=== PATIENT | female | born 1990 | race African-American/Black ===

== ENCOUNTER → 2021-03-17 00:45 | Outpatient (CLI) | payer OTHER, SELFPAY ==
[2021-03-17 12:51] LABS: SARS-CoV-2 RNA PCR Negative
== END ==
PROVIDERS: Visit Provider Surgery Plastic and Reconstructive Surgery
DX: Z01.812 Encounter for preprocedural laboratory examination (principal); Z20.822 Contact with and (suspected) exposure to COVID-19
CPT/HCPCS: C9803; U0003; U0005

== ENCOUNTER 2021-03-21 00:12 | Day surgery (SDC) | payer OTHER, SELFPAY ==
[2021-03-13 12:49] VITALS: BMI 20.1
--- NOTE | 2021-03-13 13:08 | PC.NURSE ---
Addendum entered by Kesha Baker RN 03/13/21 13:14: CORRECTION: SURGERY ON 03/21/21 ARRIVE @ 0600 SURGERY @ 0730 Original Note: Report to the Outpatient Waiting Room, entrance under the green pavilion located off [facility], at time _0600_ on date 03/13/21_. OR Time: _729__. - You will be asked a series of questions to screen for COVID 19 for your protection. - A mask is required within the hospital. - No visitors are allowed at this time. Preoperative COVID Testing Requirements: No COVID Test needed if: (proof is required; if not received patient will have Rapid Test prior to entry) - Patient has received COVID Vaccine at least 14 days prior to procedure date or - Patient has positive COVID test result within last 90 days of surgery date. COVID Test needed if above criteria is not met If not COVID vaccinated a COVID test must be conducted within 72 hours of surgery and patient is asked to isolate self from time of testing until procedure. You will go to the [facility] for your COVID testing. The [facility] site is located at the corner [address] [facility]. TEST 03/17/21 @ 0930 You will only be called if COVID results are positive and your surgeon may reschedule your elective surgery date. Patients may have clear liquids (water, carbonated beverages, clear teas, apple juice) until 3 hours prior to surgery with a maximum of 20 ounces. - No food from midnight until time of surgery - Infants may have breast milk until 4 hours before surgery, formula 6 hours prior to surgery. - Children will be allowed to drink immediately following surgery. If applicable, please bring a bottle or sippy cup to assist with drinking. Juice, water, soda, and popsicles are readily available. For infants on formula, please bring formula the day of surgery. Pacifiers are allowed. Take the following medications with a SIP of water the morning of surgery: ___NONE Medications to discontinue per physician N/A Date to take last dose N/A Please no make-up, nail upper sorbian, hairspray, perfume, deodorant, or body powder the day of surgery. No jewelry (including any body piercings) or valuables the day of surgery, leave them at home. Please take a shower or bath the night before, or the morning of, surgery with an antibacterial soap. Wear comfortable, loose fitting clothing. Children are encouraged to wear pajamas. - Jewelry must be removed prior to entering the operating room. Rings and piercings that are not removed may be cut off. - The hospital will not accept responsibility for valuables. - Please leave all valuables, including medications, at home the day of surgery. If you are going home after surgery, a licensed scoop driver must drive you home. - NO public transportation without another adult. - We recommend that an adult stay with you for 24 hours following discharge. - We also recommend that you do not drive, make important decision, drink alcoholic beverages, or take any drugs that were not prescribed by your health care provider for at least 24 hours after your discharge time. For Pediatric surgeries, we recommend two adults accompany the child home (only one inside the building at this time). Follow any additional instructions given to you from your surgeon. Telephone instructions given to _CRISELDA___and asked if any additional questions and then verbalized understanding. Patient advised to call surgeon office or pre surgery nurse liaison [phone] if any additional questions.
[2021-03-21] VITALS (12 sets, daily range): BP systolic 103–130; BP diastolic 60–89; PULSE 74–107; RESP 6–20; TEMP 36.2–36.3; O2SAT 97–100
--- NOTE | 2021-03-21 06:44 | WPDANESEPP ---
Anes - Eval Pre Procedure Procedure: Operation Date: 03/21/21 07:30 Proposed Procedures p Bilateral Breast Augmentation - Mesfin Simpson MD Date/Time: 03/21/21 06:44 Pre Op Diagnosis: Micromastia Patient Data Age: 30 Gender: F Height: 1.65 m Weight: 55 kg Allergies Allergy/AdvReac Type Severity Reaction Status Date / Time acetaminophen [From Percocet] AdvReac Unknown vomitting Verified 03/13/21 13:01 oxycodone [From Percocet] AdvReac Unknown vomitting Verified 03/13/21 13:01 Home Medications Medication Instructions Recorded Confirmed Type docusate sodium 100 mg capsule 100 mg PO DAILY #14 cap 03/05/21 03/13/21 Rx ondansetron 4 mg disintegrating 4 mg PO Q8H #21 tablet 03/05/21 03/13/21 Rx tablet carisoprodol 350 mg tablet 350 mg PO TID PRN #21 tablet 03/06/21 03/13/21 Rx hydrocodone 5 mg-acetaminophen 325 1 tablet PO Q6H PRN #30 tablet 03/06/21 03/13/21 Rx mg tablet Patient hx anesthesia problems: none Family hx anesthesia problems: none Results Review: All pre-operative results and documents have been reviewed as part of the pre-operative evaluation. [facility] Surgical History Surgical History History of Social History Social History Smoking status: Never smoker Alcohol intake: current Substance use: never Substance use type: does not use Living arrangements: with family Spiritual care concerns: No Comments h/O 3 csections. No other hx or health problems Exam Day of Procedure 03/21/21 06:44 Patient weight: normal Heart: regular rate and rhythm Lungs: clear to auscultation and normal air movement Airway: Mallampati scale class 1 Neurological: alert and oriented
--- NOTE | 2021-03-21 07:10 | WPDHPUPDATE1 ---
History and Physical Update Update Date/Time: 03/21/21 07:10 History and Physical has been reviewed, including an updated exam of the patient. There are NO changes in the patient's condition. Risks, benefits, and alternatives have been discussed and questions answered. Patient agrees to proceed with procedure.
--- NOTE | 2021-03-21 07:12 | SUR.PREOP ---
TECH WITH DR SPENCER FOR MARKING
--- NOTE | 2021-03-21 07:17 | W.PM.PROC2 ---
Procedure Note - Detailed Date of Procedure 03/21/21 Pre-op Diagnosis Micromastia Post-op Diagnosis same Procedure Performed Bilateral augmentation mammaplasty Surgeon Mesfin Simpson MD Anesthesia general Findings Bilateral dual plane 1 Sherita Underwood SoftTouch 295cc Right - REF# [id number] SN [id number] Left - REF# [id number] SN [id number] Description of Procedure She is here today for bilateral breast augmentation. Previously and again today the risks, benefits, alternatives were discussed in extensive detail. I wanted her to be very realistic about the risks involved as well as expectations. We discussed aftercare and what to monitor for. Made sure answered all of her questions to her satisfaction today and consent was obtained. Marked in the preoperative holding area with their verification. The patient was taken to the operating room placed supine on the operating table. Anesthesia was provided by anesthesiology. A surgical time-out was taken. We cleansed the skin and 1% lidocaine and 0.25% Marcaine with epinephrine was used anesthetize as a field block. She was prepped and draped in a standard sterile fashion. Tegaderm nipple Saeed were placed. A 15 blade used to make an incision along the inframammary fold. Dissection was continued at 45 degree angle until the chest wall as identified. I incised the pectoralis major along its inferior border and completely released the inferior border leaving the medial border intact. I created a subpectoral pocket in the appropriate dimensions based on our preoperative planning for the implant. I then copiously irrigated with saline solution and verified a strict hemostasis. Next the use a triple antibiotic and Betadine containing solution to irrigate the pocket. I washed my gloves with the triple antibiotic and Betadine solution. We washed the implant immediately upon opening it with this solution and only opened it when we needed it. I used implant funnel and no-touch technique. The implant was introduced into the pocket using the funnel. Having verified positioning of the implant this was closed using 2-0 Vicryl followed by 3-0 Monocryl in a running subcuticular 4-0 Monocryl followed by tissue glue. Fluffs and surgical bra were placed. Patient was awoke and taken to PACU without difficulty. All instrument sponge counts were correct at the end of the case. Estimated Blood Loss 20 Drains No Packing No Pathology none sent Complications No immediate complications Condition stable Disposition PACU
[2021-03-21] MEDS: SCOPOLAMINE 1.5 MG PATCH TRANSDERM (07:18)
[2021-03-21] MEDS: LACTATED RINGERS 1,000 ML 30 ML IV CONT ×2 (07:18→09:04)
--- NOTE | 2021-03-21 07:22 | SUR.PREOP ---
500CC IVF BOLUS INFUSING NOW
[2021-03-21] MEDS: ceFAZolin 2 GM/D5W 50 ML 2 GM/50 ML BAG IVPB (07:25)
[2021-03-21] MEDS: TRANEXAMIC ACID 1,000MG/ISO100 1,000 MG/100 ML BAG 200 MG IVPB (07:35)
[2021-03-21] MEDS: LIDO 1%/EPINEPHRINE/PF 1:200,000 30 ML VIAL INFILTRATE (08:00)
[2021-03-21] MEDS: BUPIVACAINE HCL 0.25% PF 30 ML VIAL INFILTRATE (08:00)
[2021-03-21] MEDS: fentaNYL CITRATE INJ (*CRX) 100 MCG/2 ML VIAL 25 MCG IV PUSH ×8 (09:02→11:10)
[2021-03-21] MEDS: ONDANSETRON INJ 4 MG/2 ML VIAL IV PUSH (10:40)
--- NOTE | 2021-03-21 10:59 | SUR.PHASEII ---
1050; PT AWAKE, RESTING QUIETLY. STATES PAIN 8/10. ALSO STATES SHE CALLED HER SPOUSE AND HE IS ON HIS WAY TO PICK HER UP. STATES SHE IS READY TO GO HOME. FENTANYL GIVEN IV, NO LONGER NAUSEATED.
--- NOTE | 2021-03-21 11:38 | SUR.PHASEII ---
1130; PT AWAKE AND ALERT. STATES PAIN IMPROVED. SAYS SHES READY TO GO HOME. ASSISTED WITH DRESSING.
== END 2021-03-21 11:55 | disposition home or self-care (01) ==
PROVIDERS: Visit Provider Surgery Plastic and Reconstructive Surgery
PROC: (CPT 19325; principal; 2021-03-21 07:30)
DX: Z41.1 Encounter for cosmetic surgery (principal); N64.82 Hypoplasia of breast
CPT/HCPCS: 19325; A9270; J0690; J1580; J2250; J2405; J2704; J3010; J7120

== ENCOUNTER 2022-04-10 10:24 | Day surgery (SDC) | payer OTHER, SELFPAY ==
[2022-03-30 14:20] VITALS: BMI 19.1
[2022-04-10] VITALS (7 sets, daily range): BP systolic 103–125; BP diastolic 9–84; PULSE 75–97; RESP 12–20; TEMP 36.8–37; O2SAT 97–100
--- NOTE | 2022-04-10 07:58 | P.PNAN_ITS ---
Anes - Initial Pre Proc Eval Procedure: Operation Date: 04/10/22 11:30 Proposed Procedures p Right Breast Scar Revision with Capsulorrhaphy - Mesfin Simpson MD s Bilateral Breast Galaflex Placement - Mesfin Simpson MD Date/Time: 04/10/22 07:58 Surgeon: Mesfin Simpson MD Pre Op Diagnosis: History of Breast Augmentation Patient Data Age: 31 Gender: F Height: 1.65 m Weight: 52 kg Allergies Allergy/AdvReac Type Severity Reaction Status Date / Time No Known Allergies Allergy Verified 04/10/22 10:52 Home Medications Medication Instructions Recorded Confirmed Type montelukast 5 mg chewable tablet See Rx Instructions .Route 10/01/21 03/30/22 Rx .COMPLEX #90 tabs Patient hx anesthesia problems: none Family hx anesthesia problems: none Results Review: All pre-operative results and documents have been reviewed as part of the pre- operative evaluation. [facility] Surgical History Surgical History History of Social History Social History Smoking status: Never smoker Alcohol intake: current Alcohol use details: socially Substance use: never Substance use type: does not use Living arrangements: with family Gender identity (if verbalized by the patient): Female Sexual Orientation (if Verbalized by the Patient): Straight or Heterosexual Spiritual care concerns: No Anes - Eval Final PreProcedure Day of Procedure 04/10/22 07:58 Patient weight: normal Heart: regular rate and rhythm Lungs: clear to auscultation Airway: Mallampati scale class II Neurological: alert and oriented Last oral intake: >/= 8 hours ASA classification: I Emergent: no Anesthetic plan: proceed Anesthesia type and monitoring: general LMA and standard monitoring Results Review: All pre-operative results and documents have been reviewed as part of the pre- operative evaluation. Informed Consent: The patient's anesthetic plan and its attendant risks and benefits were discussed with the patient/family/POA. Questions were solicited and answers provided to the satisfaction of the patient/family/POA.
[2022-04-10] MEDS: LACTATED RINGERS 1,000 ML 30 ML IV CONT ×2 (10:49→13:22)
[2022-04-10] MEDS: SCOPOLAMINE 1.5 MG PATCH TRANSDERM (10:57)
--- NOTE | 2022-04-10 11:28 | WPDHPUPDATE1 ---
History and Physical Update Update Date/Time: 04/10/22 11:28 History and Physical has been reviewed, including an updated exam of the patient. There are NO changes in the patient's condition. Risks, benefits, and alternatives have been discussed and questions answered. Patient agrees to proceed with procedure.
--- NOTE | 2022-04-10 11:35 | P.OP_ITS ---
Procedure Note - Detailed Date of Procedure 04/10/22 Pre-op Diagnosis History of Breast Augmentation Post-op Diagnosis Same Procedure Performed Right breast capsulorraphy (elevate right breast fold) Placement of bilateral Galaflex (with scar revision) Surgeon Mesfin Simpson MD Anesthesia General Findings Galflex REF [id number] EXP 01/08/2024 Description of Procedure Preoperatively the risks, benefits, alternatives were discussed in extensive detail. I want her to be very realistic about the risks involved as well as expectations. Discussed how we could actually make her worse. Discussed that this could recur. That included the relaxing IMF as well as the hypertrophic scarring. Made sure answered every one of her questions to her satisfaction. She voiced a clear understanding. Consent obtained. She was taken to the operating room placed supine on the operating room table. Anesthesia provided by anesthesiology. She was prepped and draped in a standard sterile fashion. Surgical time-out was taken. 1% lidocaine and 0.25% Marcaine with epinephrine was used to provide a field block. Tegaderm nipple Saeed were placed. Fifteen blade used to excise both of the previous IMF scars. On the right dissection was continued down to the implant was identified. The right breast had significant superior mobility with no counter pressure. As such the implant was left in place as she did not need superior capsulotomy. I irrigated with Betadine solution. On the right I completed inferior popcorn capsulorrhaphy to elevate the fold as planned. I copiously irrigated with Betadine solution. I GalaFLEX which had been soaking on the back table in a Betadine solution into the pocket this was closed with 2- 0 PDS followed by 3-0 Monocryl running subcuticular 4-0 Monocryl and tissue glue. On the left I irrigated with Betadine solution. Introduced the GalaFLEX into the pocket closed again with 2-0 PDS followed by 3-0 Monocryl in a running subcuticular 4-0 Monocryl and tissue glue. Surgical bra was placed. She was woken taken to PACU without difficulty. All instrument sponge counts were correct at the end of the case. Estimated Blood Loss 20 Drains No Pathology None sent Complications No immediate complications Condition Stable Disposition PACU
[2022-04-10] MEDS: TRANEXAMIC ACID 1,000 MG/10 ML AMPUL 1000 MG IV PUSH (11:51)
[2022-04-10] MEDS: ceFAZolin 2 GM/D5W 50 ML 2 GM/50 ML BAG IVPB (11:51)
[2022-04-10] MEDS: LIDO 1%/EPINEPHRINE 1:100,000 20 ML VIAL 30 ML INFILTRATE (12:25)
[2022-04-10] MEDS: fentaNYL CITRATE INJ (*CRX) 100 MCG/2 ML VIAL 25 MCG IV PUSH ×8 (13:02→13:36)
--- NOTE | 2022-04-10 13:19 | SUR.PHASEI ---
PT AWAKE, RESTING QUIETLY. STATES PAIN IMPROVING NOW. NO LONGER MOANING AND GRIMACING. STATES TOLERABLE.
--- NOTE | 2022-04-10 13:37 | SUR.PHASEI ---
PT AWAKE AND ALERT. STATES SHE'S READY TO SEE SPOUSE IN [place]. RESP EVEN UNLABORED. PT TALKATIVE.
--- NOTE | 2022-04-10 13:40 | WPDANESPN ---
Anes - Prog Note Post-Op Date/Time: 04/10/22 13:40 Cardiovascular status: normal Respiratory status: normal Airway patency: baseline Mental status: baseline Post-Op hydration status: normal Vital Signs: Last Vital Signs Temp 36.8 C 04/10/22 12:53 Pulse 82 04/10/22 13:35 Resp 18 04/10/22 13:35 BP 114/75 04/10/22 13:35 Pulse Ox 97 04/10/22 13:35 O2 Del Method Room Air 04/10/22 13:35 O2 Flow Rate 6 04/10/22 13:05 Pain Score (VAS): 2 I/O: Intake & Output 04/09/22 04/10/22 04/10/22 23:59 07:59 15:59 Intake Total 200 Balance 200 Post-procedural complaints: none Patient Feedback: Patient satisfied with anesthetic care. Other Findings: Patient vital signs back to baseline. Patient denies nausea and vomiting. Patient's pain under control. Patient OK for discharge.
[2022-04-10] MEDS: oxyCODONE HCL (*CRX) 5 MG TAB IR PO (13:59)
== END 2022-04-10 14:29 | disposition home or self-care (01) ==
PROVIDERS: Visit Provider Surgery Plastic and Reconstructive Surgery
PROC: (CPT 19342; principal; 2022-04-10 11:30)
PROC: (CPT 19370; 2022-04-10 11:30)
DX: Z42.8 Encounter for other plastic and reconstructive surgery following medical procedure or healed injury (principal)
CPT/HCPCS: 19370; 15777